=== PATIENT | male | born 1980 | race Caucasian/White ===

== ENCOUNTER 2021-05-13 18:03 | Inpatient (IN) | payer OTHER ==
[~2021-05-13] VITALS: Ht 175.3 cm; Wt 86.9 kg
[2021-05-13 18:03] VITALS: BP_SYST 152
--- NOTE | 2021-05-13 18:14 | NUR ---
Patient to ER bed 2 to gown for evaluation. Side rails up. Report given to ANIRUDH PAYTON.
--- NOTE | 2021-05-13 18:15 | NUR ---
ER at bedside examining patient.
--- NOTE | 2021-05-13 18:17 | NUR ---
RECEIVED AND IN ROOM, VSS, SR ON MONITOR NO ECTOPY. DENIES CP/SOB.
[2021-05-13 19:01] LABS: BASOPHILS % (AUTO) 0.7 % (0.0-2.0); EOSINOPHILS # (AUTO) 0.2 K/uL (0.0-0.4); EOSINOPHILS % (AUTO) 3.1 % (0.0-4.0); HEMATOCRIT 37.1 % (36-54); HEMOGLOBIN 13.3 g/dL (14.0-18.0); LYMPHOCYTES # (AUTO) 1.9 K/uL (1.0-5.5); LYMPHOCYTES % (AUTO) 27.6 % (20.5-51.5); MEAN CORPUSCULAR HEMOGLOBIN 30 pg (27-31); MEAN CORPUSCULAR HGB CONC 36 % (32-36); MEAN CORPUSCULAR VOLUME 85 fL (79.0-98.0); MONOCYTES # (AUTO) 0.9 K/uL (0.0-1.0); MONOCYTES % (AUTO) 12.5 % (1.7-9.3); NEUTROPHILS # (AUTO) 3.8 K/uL (1.8-7.7); NEUTROPHILS % (AUTO) 56.1 % (40.0-70.0); PLATELET COUNT (AUTO) 290 K/uL (130-430); RED BLOOD CELL COUNT(AUTO) 4.38 MIL/uL (4.2-6.2); RED CELL DISTRIBUTION WIDTH 13.6 % (9.0-15.0); WHITE BLOOD COUNT (AUTO) 6.8 K/uL (4.8-10.8)
[2021-05-13 19:04] LABS: CALCIUM 9.2 mg/dL (8.4-11.0); CREATININE 0.9 mg/dL (0.55-1.30); POTASSIUM 3.9 mmol/L (3.5-5.1)
[2021-05-13 19:10] LABS: ALBUMIN 3.8 g/dL (3.4-4.8); TOTAL BILIRUBIN 0.3 mg/dL (0.0-1.0)
--- NOTE | 2021-05-13 19:18 | NUR ---
VSS no s/s of acute distress Resting on gurney rails up
--- NOTE | 2021-05-13 20:58 | NUR ---
pt VSS no s/s of acute distress, awaiting lab results and radiology followup
--- NOTE | 2021-05-13 21:35 | NUR ---
Pt aware possible adm, Dr. Evangelista going to bedside for pt update
[2021-05-13] MEDS ORDERED: ASPIRIN 325 MG TABLET (ECOTRIN) PO ONE (21:45)
[2021-05-13] MEDS ORDERED: MORPHINE 2 MG/ML INJ. SYRINGE IVP ONE (21:45)
[2021-05-13] MEDS ORDERED: NITROGLYCERIN 0.4 MG TAB.SUBL SL ONE (22:15)
--- NOTE | 2021-05-13 22:20 | NUR ---
Patient will be admitted to care of [facility]. Admitted to TELE unit. PENDING ROOM ASSIGNMENT. Belongings list completed. Complete and up to date summary report printed. SBAR report to be given at bedside with opportunity for questions.
--- NOTE | 2021-05-13 23:12 | NUR ---
ADMISSION NOTE Received patient from ER via [facility]co, received report from MALI PAYTON. Patient admitted with diagnosis of ELEVATED TROPONIN. Patient oriented to hospital routine, call light, toileting and safety-patient verbalized understanding.
--- NOTE | 2021-05-13 23:20 | NUR ---
Spoke with Olive on phone, Zac Sup ok'd giving report by phone, severe nursing staff shortage in ED, report given successfully
--- NOTE | 2021-05-13 23:21 | NUR ---
Transfer to Tele via ACLS protocol. Licensed nurse present. IV present no signs or symptoms of infiltration.
--- NOTE | 2021-05-13 23:21 | NUR ---
Patient will be admitted to care of Dr. Patrick. Admitted to Tele unit. Will go to room 118A. Belongings list completed. Complete and up to date summary report printed. SBAR report to be given at bedside with opportunity for questions.
[2021-05-13 23:54] VITALS: BP_SYST 154
[2021-05-14] MEDS ORDERED: cloNIDine HCL 0.1 MG TABLET PO PRN
--- NOTE | 2021-05-14 00:15 | NUR ---
Patient was received from ER. Patient is AA&Ox4 able to make needs known. Patient was admitted for c/o chest pain and an admitting diagnosis of Acute Coronary Syndrome. Patient admission was being completed by resource nurse Surendra. No s/s of distress was noted. Chest rise is even and unlabored with CTA on RA. Normal heart sounds S1 & S2 present. Active bowel sounds x4, denies pain on palpation. Patient V/S were elevated at bed side AT 154/102. New order for cloNIDine 0.1 po q4hrs PRN for elevated BP was added and administered as ordered. Call light is within reach, bed is in the lowest position. Will continue to monitor throughout the shift.
--- NOTE | 2021-05-14 00:30 | NUR ---
Patient reported to nurse that he was experiencing chest pain. Darnell Cooper was notified and a new order for morphine IV push was added.
--- NOTE | 2021-05-14 00:33 | NUR ---
HIGH ALERT NOTE: Called Dr. TOTH back at [phone] identified within the medical roster to verify physician authenticity.
[2021-05-14] MEDS ORDERED: NALOXONE HCL 0.4 MG/ML AMP (NARCAN) IVP PRN (00:45)
[2021-05-14] MEDS: MORPHINE 2 MG/ML INJ. SYRINGE IVP PRN ×3 (00:57→15:41)
--- NOTE | 2021-05-14 00:57 | NUR ---
Morphine 1mg IV push was administered as ordered.
[2021-05-14 01:30] VITALS: BP_SYST 137
--- NOTE | 2021-05-14 04:46 | NUR ---
CARDIO CONSULT Consult for Dr. Hinton was called, RE: Acute Coronary Synd. SW: Maylin
--- NOTE | 2021-05-14 06:12 | NUR ---
Patient is sleeping in bed, AA&Ox4, Denies pain/discomfort. Respirations are even and unlabored on RA. No new changes in status throughout the shift. All current needs have been met. Call light is within reach and bed is in the lowest position for safety. Will endorse further care to AM shift nurse for continuity of care.
[2021-05-14 06:59] LABS: BASOPHILS % (AUTO) 0.6 % (0.0-2.0); EOSINOPHILS # (AUTO) 0.2 K/uL (0.0-0.4); EOSINOPHILS % (AUTO) 3.8 % (0.0-4.0); HEMATOCRIT 35.6 % (36-54); HEMOGLOBIN 12.8 g/dL (14.0-18.0); LYMPHOCYTES # (AUTO) 1.5 K/uL (1.0-5.5); LYMPHOCYTES % (AUTO) 28.9 % (20.5-51.5); MEAN CORPUSCULAR HEMOGLOBIN 31 pg (27-31); MEAN CORPUSCULAR HGB CONC 36 % (32-36); MEAN CORPUSCULAR VOLUME 85 fL (79.0-98.0); MONOCYTES # (AUTO) 0.6 K/uL (0.0-1.0); MONOCYTES % (AUTO) 11.1 % (1.7-9.3); NEUTROPHILS # (AUTO) 2.9 K/uL (1.8-7.7); NEUTROPHILS % (AUTO) 55.6 % (40.0-70.0); PLATELET COUNT (AUTO) 226 K/uL (130-430); RED BLOOD CELL COUNT(AUTO) 4.17 MIL/uL (4.2-6.2); RED CELL DISTRIBUTION WIDTH 13.6 % (9.0-15.0); WHITE BLOOD COUNT (AUTO) 5.3 K/uL (4.8-10.8)
[2021-05-14] MEDS ORDERED: *LOVENOX 1MG/KG Q12H/PHARMACY XX PRN (07:30)
--- NOTE | 2021-05-14 07:40 | NUR ---
Initial notes Alert, on room air, Pain is controlled. Seen by Dr. Hinton. Enc to call as needed. Call light within reach.
[2021-05-14 07:50] VITALS: BP_SYST 142
[2021-05-14 08:10] LABS: ALBUMIN 3.6 g/dL (3.4-4.8); CREATININE 0.74 mg/dL (0.55-1.30); POTASSIUM 3.8 mmol/L (3.5-5.1); THYROID STIMULATING HORMONE 0.91 uIu/mL (0.36-3.74); TOTAL BILIRUBIN 0.4 mg/dL (0.0-1.0)
[2021-05-14] MEDS ORDERED: ENOXAPARIN SODIUM 80 MG/0.8 ML SYRINGE SUBCUT SCH (09:00)
[2021-05-14] MEDS ORDERED: METOPROLOL TARTRATE 25 MG TABLET PO SCH (09:00)
[2021-05-14] MEDS ORDERED: ASPIRIN 81 MG TAB.CHEW PO SCH (09:00)
[2021-05-14] MEDS ORDERED: ATORVASTATIN 20 MG TABLET PO SCH (09:00)
--- NOTE | 2021-05-14 09:30 | NUR ---
CM: s/w Blanca/lead systems analyst at [facility] re transfer to higher level of care. She opened the new admission case and will send the clinicals (faxed to her this am) for a review. Then the CM will call me back around 1130 am with decision on where pt should transfer to: [facility] or [facility] . Dr Hinton made aware.
--- NOTE | 2021-05-14 09:36 | NUR ---
TATA MENDES WAS INFORMED THAT [facility] J[facility]US WANTS ANGIO TO BE DONE AT EITHER [place] OR [facility]. PER TATA VALADEZ IS WORKING ON THE TRANSFER TO [facility].
--- NOTE | 2021-05-14 12:10 | NUR ---
Notes- Complain of chest pain, medicated with morphine as ordered.
--- NOTE | 2021-05-14 12:17 | NUR ---
Notes eating lunch, headache is better. Denies any chest pain.
[2021-05-14 12:21] VITALS: BP_SYST 139
--- NOTE | 2021-05-14 13:52 | NUR ---
SPOKE TO DR. TOTH AND MADE AWARE THAT PT WILL BE TRANSFER TO [facility]
[2021-05-14 14:26] VITALS: BP_SYST 139
--- NOTE | 2021-05-14 15:30 | NUR ---
DISCHARGE TO [facility] FOR ANGIOGRAM, AWAKE, ORIENTED, MORPHINE GIVEN BEFORE PATIENT LEAVE. NO DISTRESS. REPORT GIVEN, ACCEPTING DR. IS DR. ALONSO. ALL BELONGINGS SENT KEEP IVL.
== END 2021-05-14 15:50 | disposition short-term general hospital (02) | DRG 282 ==
LOC: SED 18:03 → STU 22:13
PROVIDERS: ADMIT Internal Medicine; ATTEND Internal Medicine
DX: I21.4 Non-ST elevation (NSTEMI) myocardial infarction (principal); I10 Essential (primary) hypertension; E78.5 Hyperlipidemia, unspecified; I24.9 Acute ischemic heart disease, unspecified; J45.909 Unspecified asthma, uncomplicated; Z20.822 Contact with and (suspected) exposure to COVID-19; F32.A Depression, unspecified; Z90.49 Acquired absence of other specified parts of digestive tract; Z87.891 Personal history of nicotine dependence; Z82.3 Family history of stroke; Z79.899 Other long term (current) drug therapy; Z82.49 Family history of ischemic heart disease and other diseases of the circulatory system; Z87.442 Personal history of urinary calculi
CPT/HCPCS: 36415; 71045; 80053; 80061; 84443; 84484; 85025; 93005; 93306; 96374; 99285; G0378; J1650; J2270